=== PATIENT | male | born 1975 | race Caucasian/White ===

== ENCOUNTER 2017-12-14 13:20 | Inpatient (IN) | payer MEDICAID ==
[~2017-12-14] VITALS: Ht 180.3 cm; Wt 66.7 kg
--- NOTE | 2017-12-14 13:48 | NUR ---
PT IS IN ROOM #1B, WAITING FOR DR CHANG EVALUATION.
[2017-12-14] MEDS ORDERED: SEVE800T8 PO (13:51)
[2017-12-14] MEDS ORDERED: ABAC300T PO (13:51)
[2017-12-14] MEDS ORDERED: FAMO-132 PO (13:51)
[2017-12-14] MEDS ORDERED: TEMA15CA PO (13:51)
[2017-12-14] MEDS ORDERED: SIMV20TA6 PO (13:51)
[2017-12-14] MEDS ORDERED: LISI10TA5 PO (13:51)
[2017-12-14] MEDS ORDERED: FOLI1TAB16 PO (13:51)
[2017-12-14] MEDS ORDERED: DOLU50TA PO (13:51)
[2017-12-14] MEDS ORDERED: B CO1TAB7 PO (13:51)
[2017-12-14] MEDS ORDERED: EMTR200C4 PO (13:51)
[2017-12-14] MEDS ORDERED: AMLO10TA2 PO (13:51)
[2017-12-14] MEDS ORDERED: LABE300T2 PO (13:51)
--- NOTE | 2017-12-14 14:15 | NUR ---
PT EVALUATED BY DR CHANG.
[2017-12-14] MEDS ORDERED: IV NORMAL SALINE 500 ML BAG IV ONE (14:45)
[2017-12-14 14:47] LABS: BASOPHILS % (AUTO) 0.4 % (0.0-2.0); EOSINOPHILS # (AUTO) 0.1 K/uL (0.0-0.7); EOSINOPHILS % (AUTO) 1.2 % (0.0-7.0); HEMATOCRIT 37.7 % (36.7-47.1); HEMOGLOBIN 12.9 g/dL (12.5-16.3); LYMPHOCYTES # (AUTO) 1.5 K/uL (20.0-40.0); LYMPHOCYTES % (AUTO) 26.8 % (20.5-51.5); MEAN CORPUSCULAR HEMOGLOBIN 33.7 uug (23.8-33.4); MEAN CORPUSCULAR HGB CONC 34 g/dL (32.5-36.3); MEAN CORPUSCULAR VOLUME 98.2 fL (73.0-96.2); MONOCYTES # (AUTO) 0.9 K/uL (2.0-10.0); MONOCYTES % (AUTO) 16.6 % (0.0-11.0); NEUTROPHILS # (AUTO) 3.1 K/uL (1.8-8.9); PLATELET COUNT (AUTO) 256 K/uL (152-348); RED BLOOD CELL COUNT(AUTO) 3.84 MIL/uL (4.06-5.63); WHITE BLOOD COUNT (AUTO) 5.7 K/uL (3.6-10.2)
[2017-12-14 15:00] LABS: BILIRUBIN,DIRECT 0.1 mg/dL (0.0-0.2); BILIRUBIN,TOTAL 0.6 mg/dL (0.2-1.0); CREATININE 5.1 mg/dL (0.6-1.3); POTASSIUM 3.1 mmol/L (3.5-5.1); TOTAL PROTEIN, SERUM 8.4 g/dL (6.4-8.2)
[2017-12-14 15:25] LABS: EOSINOPHILS % (MANUAL) 1 % (0-8); LYMPHOCYTES % (MANUAL) 29 % (20-40); MONOCYTES % (MANUAL) 15 % (2-10); NEUTROPHILS % (MANUAL) 55 % (42-75)
--- NOTE | 2017-12-14 18:08 | NUR ---
PT WAS TRANSFERED TO ROOM #205. REPORT WAS GIVEN TO ECONOMIC SPECIALIST.
[2017-12-14 18:15] VITALS: BP 116/70
--- NOTE | 2017-12-14 18:15 | NUR ---
RECEIVED PATIENT FROM ER VIA GURNEY. PT IS ALERT, AMBULATORY, IN NO DISTRESS. PT IS ADMITTED TO TELE UNDER THE CARE OF DR. KOEHLER. DX: WEAKNESS/NEAR SYNCOPE. BELONGING LIST DONE, ADMISSION PROCESS AND CARE PLAN INITIATED. MD NOTIFIED FOR NEW ADMISSION ORDERS. WILL ENDORSE TO ASSOCIATE FINANCIAL ADVISOR RN.
--- NOTE | 2017-12-14 18:30 | NUR ---
PT IS ON TELE SINUS RHYTHM.
--- NOTE | 2017-12-14 19:20 | NUR ---
Received patient lying in bed. AAOX4. In no acute distress. Denies any pain or SOB. IV site on right AC intact and patent. Dialysis access on right chest area used for dialysis. Left arm shunt, but no longer working per patient. Safety measure initiated and call mckeon within reach. Addendum: 12/14/17 at 2117 by SIENA COOPER RN Patient NSR on tele at 78/min.
[2017-12-14] MEDS ORDERED: EMTRICITABINE 200 MG CAPSULE PO SCH (19:30)
[2017-12-14] MEDS ORDERED: TEMAZEPAM 15 MG CAPSULE PO PRN (19:30)
[2017-12-14] MEDS ORDERED: ACETAMINOPHEN 325 MG TABLET PO PRN (19:30)
[2017-12-14] MEDS ORDERED: ONDANSETRON 4 MG/2 ML VIAL IV PRN (19:30)
[2017-12-14] MEDS ORDERED: ENALAPRILAT DIHYDRATE INJ 2.5 MG in IV NORMAL SALINE 50 ML IV PRN (19:45)
--- NOTE | 2017-12-14 20:00 | NUR ---
Telephone call from pharmacist Amy regarding patient anti viral medications, instructed this nurse to talk to patient to request to bring his medication from home. Spoke to patient and states understanding. Will have family bring his medication tomorrow morning.
[2017-12-14] MEDS: SIMVASTATIN 20 MG TABLET PO SCH (20:16)
--- NOTE | 2017-12-14 20:25 | NUR ---
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
[2017-12-14 20:39] VITALS: BP 97/57
[2017-12-14] MEDS: HYDROCODONE/APAP 5-325MG TABLET PO PRN (21:52)
[2017-12-15 00:22] VITALS: BP 99/55
--- NOTE | 2017-12-15 00:29 | NUR ---
PREPAROLE COUNSELING AIDE reported patient complained of pain on left arm and right kidney, when this nurse went to patient room, pt is sound asleep. No signs or symptoms of pain noted.
[2017-12-15 04:00] VITALS: BP 111/76
[2017-12-15] MEDS: HYDROCODONE/APAP 5-325MG TABLET PO PRN ×3 (05:52→19:47)
--- NOTE | 2017-12-15 06:04 | NUR ---
AAOX4. In no acute distress. Pain manage with [place] PRN per order. NSR, with occasional sinus chema on tele at 54-60/min. Safety measure maintained and call mckeon within reach.
[2017-12-15 06:08] LABS: EOSINOPHILS # (AUTO) 0.2 K/uL (0.0-0.7); EOSINOPHILS % (AUTO) 3.5 % (0.0-7.0); HEMATOCRIT 36.6 % (36.7-47.1); HEMOGLOBIN 12.7 g/dL (12.5-16.3); LYMPHOCYTES # (AUTO) 1.7 K/uL (20.0-40.0); LYMPHOCYTES % (AUTO) 37.2 % (20.5-51.5); MEAN CORPUSCULAR HEMOGLOBIN 34.1 uug (23.8-33.4); MEAN CORPUSCULAR HGB CONC 35 g/dL (32.5-36.3); MEAN CORPUSCULAR VOLUME 98.4 fL (73.0-96.2); MONOCYTES # (AUTO) 0.8 K/uL (2.0-10.0); MONOCYTES % (AUTO) 17.6 % (0.0-11.0); NEUTROPHILS # (AUTO) 1.9 K/uL (1.8-8.9); NEUTROPHILS % (AUTO) 40.7 % (38.5-71.5); PLATELET COUNT (AUTO) 225 K/uL (152-348); RED BLOOD CELL COUNT(AUTO) 3.72 MIL/uL (4.06-5.63); WHITE BLOOD COUNT (AUTO) 4.7 K/uL (3.6-10.2)
[2017-12-15 06:31] LABS: THYROID STIMULATING HORMONE 0.665 mIU/mL (0.358-3.740)
[2017-12-15 06:52] LABS: BILIRUBIN,TOTAL 0.5 mg/dL (0.2-1.0); CREATININE 7.3 mg/dL (0.6-1.3); MAGNESIUM 2.3 mg/dL (1.8-2.4); PHOSPHOROUS 6.8 mg/dL (2.5-4.9); POTASSIUM 3.7 mmol/L (3.5-5.1); TOTAL PROTEIN, SERUM 7.6 g/dL (6.4-8.2)
[2017-12-15] MEDS: SEVELAMER CARBONATE 800 MG TABLET PO SCH ×3 (08:37→17:24)
[2017-12-15] MEDS: FAMOTIDINE 20 MG TABLET PO SCH ×2 (08:37→17:24)
[2017-12-15] MEDS ORDERED: VITAMIN B COMPLEX 1 TABLET PO SCH (09:00)
[2017-12-15] MEDS ORDERED: FOLIC ACID 1 MG TABLET PO SCH (09:00)
[2017-12-15] MEDS ORDERED: VITAMIN B COMP W C PO SCH (09:00)
[2017-12-15] MEDS ORDERED: ABACAVIR SULFATE 300 MG PO SCH (09:00)
[2017-12-15] MEDS ORDERED: Medication Not On Formulary EA (Dolutegravir Sodium (Tivicay) 50 MG) PO SCH (09:00)
[2017-12-15 09:19] LABS: BASOPHILS % (MANUAL) 1 % (0-2); EOSINOPHILS % (MANUAL) 4 % (0-8); LYMPHOCYTES % (MANUAL) 37 % (20-40); MONOCYTES % (MANUAL) 14 % (2-10); NEUTROPHILS % (MANUAL) 44 % (42-75)
[2017-12-15 11:29] VITALS: BP 102/72
[2017-12-15 15:51] VITALS: BP 121/89
--- NOTE | 2017-12-15 19:45 | NUR ---
Received this patient awake & alert no SOB denies chest pain. Complaining of left arm discomfort. Dr. Naylor in room giving discharge home instructions. Vital signs are WNL. IV heplock removed. Tele discontinued as ordered.
[2017-12-15] MEDS: SIMVASTATIN 20 MG TABLET PO SCH (19:47)
[2017-12-15 19:55] VITALS: BP 126/91
--- NOTE | 2017-12-15 20:00 | NUR ---
Qulin 1 tab po given per patient request. Routine night meds adm. Home meds & personal belongings returned. No acute distress. Assisted down to hospital lobby. Discharged.
[2017-12-15] MEDS ORDERED: TIVICAY 50 MG PO SCH (21:00)
[2017-12-15] MEDS ORDERED: [UNRECOGNIZED DRUG - OTHER] PO SCH (21:00)
[2017-12-15] MEDS ORDERED: [UNRECOGNIZED DRUG - OTHER] PO SCH (21:00)
[2017-12-18] MEDS ORDERED: EMTRICITABINE 200 MG PO SCH (21:00)
[2017-12-18] MEDS ORDERED: [UNRECOGNIZED DRUG - OTHER] PO SCH (21:00)
== END 2017-12-15 20:05 | disposition home or self-care (01) | DRG 815 ==
LOC: ER 13:20 → TELE 17:43
PROVIDERS: ADMIT Internal Medicine; ATTEND Internal Medicine
DX: T67.5XXA Heat exhaustion, unspecified, initial encounter (principal); I12.0 Hypertensive chronic kidney disease with stage 5 chronic kidney disease or end stage renal disease; N18.6 End stage renal disease; E86.0 Dehydration; I95.1 Orthostatic hypotension; Z79.899 Other long term (current) drug therapy; Z99.2 Dependence on renal dialysis; X30.XXXA Exposure to excessive natural heat, initial encounter; Y92.009 Unspecified place in unspecified non-institutional (private) residence as the place of occurrence of the external cause; E78.5 Hyperlipidemia, unspecified; E87.6 Hypokalemia; F41.9 Anxiety disorder, unspecified; G47.00 Insomnia, unspecified; M54.9 Dorsalgia, unspecified; T82.590D Other mechanical complication of surgically created arteriovenous fistula, subsequent encounter
CPT/HCPCS: 36415; 71045; 83690; 83735; 84100; 84443; 85025; 93005; 93880; A4663; J7030

== ENCOUNTER 2024-09-03 04:35 | Emergency (ER) | payer MEDICARE, OTHER ==
[~2024-09-03] VITALS: Ht 172.7 cm; Wt 60.8 kg
[~2024-09-03 04:35] MED LIST: ABAC300T2 PO; AMLO10TA59 PO; B CO1TAB7 PO; DOLU50TA PO; EMTR200C4 PO; FAMO-132 PO; FOLI1TAB94 PO; LABE300T2 PO; LISI10TA29 PO; SEVE800T8 PO; SIMV-46 PO; TEMA15CA PO
[2024-09-03] MEDS ORDERED: SERT25TA PO (05:02)
[2024-09-03] MEDS ORDERED: ALBU8.5H8 IH (05:02)
[2024-09-03] MEDS ORDERED: HYDR-4322 PO (05:02)
[2024-09-03] MEDS ORDERED: PANT40TA49 PO (05:02)
[2024-09-03] MEDS ORDERED: ATOR20TA PO (05:02)
[2024-09-03] MEDS ORDERED: DILT-32 PO (05:02)
[2024-09-03] MEDS ORDERED: DOCU100T2 PO (05:02)
[2024-09-03] MEDS ORDERED: SEVE800T7 PO (05:02)
[2024-09-03] MEDS ORDERED: POLY250017 PO (05:02)
[2024-09-03] MEDS ORDERED: ATEN100T PO (05:02)
[2024-09-03 05:08] LABS: BASOPHILS % (AUTO) 1.2 % (0.0-2.0); EOSINOPHILS # (AUTO) 0.1 K/uL (0.0-0.7); EOSINOPHILS % (AUTO) 1.8 % (0.0-7.0); HEMOGLOBIN 12.1 g/dL (12.5-16.3); LYMPHOCYTES # (AUTO) 0.7 K/uL (0.8-4.8); LYMPHOCYTES % (AUTO) 17.6 % (20.5-51.5); MEAN CORPUSCULAR HEMOGLOBIN 33.1 uug (23.8-33.4); MEAN CORPUSCULAR HGB CONC 34 g/dL (32.5-36.3); MEAN CORPUSCULAR VOLUME 98.3 fL (73.0-96.2); MONOCYTES # (AUTO) 0.7 K/uL (0.1-1.30); MONOCYTES % (AUTO) 18.4 % (0.0-11.0); NEUTROPHILS # (AUTO) 2.4 K/uL (1.8-8.9); PLATELET COUNT (AUTO) 226 K/uL (152-348); RED BLOOD CELL COUNT(AUTO) 3.66 MIL/uL (4.06-5.63); RED CELL DISTRIBUTION WIDTH 16.2 % (12.1-16.2)
[2024-09-03 05:19] LABS: DIFFERENTIAL COMMENT 1
[2024-09-03] MEDS ORDERED: FUROSEMIDE 40 MG/4 ML VIAL ONE (05:28)
[2024-09-03] MEDS ORDERED: ONDANSETRON 4 MG/2 ML VIAL ONE ×2 (05:28→05:30)
[2024-09-03] MEDS ORDERED: NITROGLYCERIN OINT 1 GM PACKET TP ONE (05:29)
[2024-09-03] MEDS ORDERED: HYDROMORPHONE 1 MG/1 ML DISP.SYRIN ONE (05:29)
[2024-09-03] MEDS: NITROGLYCERIN OINT 1 GM PACKET TP ONE (05:35)
[2024-09-03] MEDS: HYDROMORPHONE 1 MG/1 ML DISP.SYRIN IV ONE (05:36)
[2024-09-03] MEDS: FUROSEMIDE 40 MG/4 ML VIAL IV ONE (05:37)
[2024-09-03] MEDS: ONDANSETRON 4 MG/2 ML VIAL IV ONE (05:39)
[2024-09-03 05:52] LABS: ALANINE AMINOTRANSFERASE 25 U/L (16-63); ALBUMIN 3.6 g/dL (3.4-5.0); ALKALINE PHOSPHATASE 47 U/L (50-136); ASPARTATE AMINOTRANSFERASE 28 U/L (15-37); BILIRUBIN,DIRECT 0.1 mg/dL (0.0-0.2); BILIRUBIN,TOTAL 0.4 mg/dL (0.2-1.0); CALCIUM 8.9 mg/dL (8.5-10.1); CARBON DIOXIDE 27 mmol/L (21-32); CHLORIDE 98 mmol/L (98-107); EOSINOPHILS % (MANUAL) 3 % (0-8); GLUCOSE 138 mg/dL (74-106); LYMPHOCYTES % (MANUAL) 20 % (20-40); MONOCYTES % (MANUAL) 16 % (2-10); NEUTROPHILS % (MANUAL) 61 % (42-75); NT-PRO BNP 9480 pg/mL (0-125); POTASSIUM 3.4 mmol/L (3.5-5.1); SODIUM SERUM 136 mmol/L (136-145); TOTAL PROTEIN, SERUM 6.7 g/dL (6.4-8.2); UREA NITROGEN, BLOOD 35 mg/dL (7-18)
[2024-09-03 05:53] LABS: ANISOCYTOSIS 1+; PLATELET ESTIMATE ADEQUATE
[2024-09-03] MEDS ORDERED: SWABABLE VALVE TRANSFER SET EA MC ONE (07:30)
[2024-09-03] MEDS ORDERED: IOHEXOL 350 100 ML INFUS..BTL ONE (07:30)
[2024-09-03] MEDS ORDERED: IV NORMAL SALINE 250 ML IV ONE (07:30)
[2024-09-03] MEDS ORDERED: HYDROCODONE/APAP 5-325MG TABLET ONE (09:21)
[2024-09-03] MEDS: HYDROCODONE/APAP 5-325MG TABLET PO ONE (09:23)
[2024-09-03 10:55] VITALS: BP 125/76; TEMP 97.9; O2SAT 99
== END 2024-09-03 10:56 | disposition home or self-care (01) ==
LOC: ER 04:35
DX: R55 Syncope and collapse (principal); R06.82 Tachypnea, not elsewhere classified; E78.5 Hyperlipidemia, unspecified; I13.11 Hypertensive heart and chronic kidney disease without heart failure, with stage 5 chronic kidney disease, or end stage renal disease; I25.10 Atherosclerotic heart disease of native coronary artery without angina pectoris; I48.91 Unspecified atrial fibrillation; N18.6 End stage renal disease; Z79.624 Long term (current) use of inhibitors of nucleotide synthesis; Z79.899 Other long term (current) drug therapy; Z87.19 Personal history of other diseases of the digestive system; Z91.158 Patient's noncompliance with renal dialysis for other reason; Z99.2 Dependence on renal dialysis
CPT/HCPCS: 36415; 71045; 71275; 84484; 85025; 85730; A4606; A4663; J1171; J1938; J2405; Q9967